=== PATIENT | female | born 1955 | race Caucasian/White ===

== ENCOUNTER 2018-09-02 07:07 | Outpatient (CLI) | payer OTHER ==
[2018-09-02 12:31] LABS: BASOPHILS % (AUTO) 1.2 %; EOSINOPHILS # (AUTO) 0.1 10^3/uL (0.0-0.7); EOSINOPHILS % (AUTO) 1.4 %; HGB - HEMOGLOBIN 14.3 g/dL (12.0-16.0); LYMPHOCYTES # (AUTO) 1.1 10^3/uL (1.5-3.5); LYMPHOCYTES % (AUTO) 31.7 %; MEAN CORPUSCULAR HEMOGLOBIN 29.4 pg (27.0-31.0); MEAN CORPUSCULAR HGB CONC 33.5 g/dL (32.0-36.0); MEAN CORPUSCULAR VOLUME 87.9 fL (81.0-99.0); MONOCYTES # (AUTO) 0.3 10^3/uL (0.0-1.0); MONOCYTES % (AUTO) 9.3 %; NEUTROPHILS % (AUTO) 56.4 %; PLT - PLATELET COUNT 273 10^3/uL (130-450); RED BLOOD COUNT 4.87 10^6/uL (4.20-5.40); RED CELL DISTRIBUTION WIDTH 13.2 % (12.0-15.0); WHITE BLOOD COUNT 3.5 x10^3/uL (4.8-10.8)
[2018-09-02 12:46] LABS: ALBUMIN 4.1 g/dL (3.2-5.5); ALBUMIN/GLOBULIN RATIO 1.2 (1.0-2.2); ALKALINE PHOSPHATASE 73 IU/L (42-121); ALT ALANINE AMINOTRANSFERASE 25 IU/L (10-60); AST ASPARTATE AMINOTRANSFERASE 29 IU/L (10-42); BILIRUBIN,TOTAL 1.1 mg/dL (0.2-1.0); BUN - BLOOD UREA NITROGEN 10 mg/dL (6-20); CALCIUM 9.4 mg/dL (8.5-10.3); CARBON DIOXIDE - CO2 29 mmol/L (21-32); CHLORIDE 98 mmol/L (101-111); CHOL/HDL RATIO 2.6 (<4.4); CHOLESTEROL 200 mg/dL; CREATININE 0.7 mg/dL (0.4-1.0); GFR - MDRD 84 (>89); GLUCOSE 94 mg/dL (70-100); HDL CHOLESTEROL 77 mg/dL; LDL CHOLESTEROL,CALCULATED 113 mg/dL; LDL/HDL RATIO 1.5 (<4.4); SODIUM 136 mmol/L (135-145); TOTAL PROTEIN 7.6 g/dL (6.7-8.2); VLDL CHOLESTEROL 10 mg/dL
== END 2018-09-02 23:59 | disposition home or self-care (01) ==
LOC: LAB.WCP 07:07
PROVIDERS: ATTEND Physician Assistant Medical
DX: Z00.00 Encounter for general adult medical examination without abnormal findings (principal)
CPT/HCPCS: 36415; 80053; 80061; 83721; 84443; 85025

== ENCOUNTER 2018-09-17 11:23 | Outpatient (CLI) | payer OTHER ==
--- NOTE | 2018-09-18 11:26 | Mammography Report ---
Reason: SCREENING MAMMO Procedure Date: 09/17/2018 Accession Number: [id number] / [id number] Procedure: MGN - Screening Mammo Dig Bilat CPT Code: FULL RESULT: EXAM: Screening Mammo Dig Bilat DATE: 09/17/2018 11:44 AM CLINICAL HISTORY: Routine screening. No reported personal or family history of breast cancer. TECHNIQUE: Bilateral CC and MLO views were obtained. COMPARISON: 02/19/2015 through 08/05/2010 FINDINGS: The breasts demonstrate scattered fibroglandular densities bilaterally. Bilateral breasts: There are no suspicious masses, calcifications or areas of distortion. Stable appearance of 2 subcentimeter oval, circumscribed margin equal density masses in the upper outer left breast, middle depth. IMPRESSION: Benign findings RECOMMENDATION: Routine annual screening unless otherwise clinically indicated. BI-RADS CATEGORY 2: Benign findings STANDARD QUALIFYING STATEMENTS: 1. This examination was reviewed with the aid of Computer-Aided Detection (CAD). 2. A negative or benign imaging report should not preclude biopsy if clinically suspicious findings are present. 3. Dense breasts may obscure an underlying neoplasm. 4. This examination was reviewed without the aid of 3D breast imaging (tomosynthesis).
== END 2018-09-17 11:24 | disposition home or self-care (01) ==
LOC: DI.N 11:23
DX: Z12.31 Encounter for screening mammogram for malignant neoplasm of breast (principal)
CPT/HCPCS: 77067

== ENCOUNTER 2018-12-27 07:54 | Outpatient (CLI) | payer OTHER ==
--- NOTE | 2018-12-27 16:17 | XRAY Report ---
Reason: BACK PAIN,THORACIC REGION,LUMBAR Procedure Date: 12/27/2018 Accession Number: [id number] / [id number] Procedure: WCP - Thoracic Spine 2 View CPT Code: FULL RESULT: EXAM: THORACIC SPINE RADIOGRAPHY EXAM DATE: 12/27/2018 08:32 AM. CLINICAL HISTORY: Back pain, thoracic region, lumbar. COMPARISON: None. TECHNIQUE: 2 views. FINDINGS: Alignment: There is mild thoracic kyphosis. There is a mild dextroconvex scoliosis, 4 degrees, centered in the mid thoracic spine. Bones: The bones are qualitatively osteopenic; this limits evaluation for underlying fractures or masses. No dominant single level fracture is detected. Disks: Normal. Disk heights are maintained. Soft Tissues: Calcified aortic arch, mild. IMPRESSION: Kyphosis without dominant single level fracture. Mild scoliosis. RADIA
== END 2018-12-27 07:55 | disposition home or self-care (01) ==
LOC: DI.WCP 07:54
PROVIDERS: ATTEND Family Medicine
DX: M41.84 Other forms of scoliosis, thoracic region (principal)
CPT/HCPCS: 72070

== ENCOUNTER 2018-12-27 07:55 | Outpatient (CLI) | payer OTHER ==
--- NOTE | 2018-12-27 16:17 | XRAY Report ---
Reason: BACK PAIN,THORACIC REGION,LUMBAR Procedure Date: 12/27/2018 Accession Number: [id number] / [id number] Procedure: WCP - Lumbar Spine 2 View CPT Code: FULL RESULT: EXAM: LUMBOSACRAL SPINE RADIOGRAPHY EXAM DATE: 12/27/2018 08:35 AM. CLINICAL HISTORY: BACK PAIN,THORACIC REGION,LUMBAR. COMPARISONS: None. TECHNIQUE: 2 views. FINDINGS: Alignment: Normal. No spondylolisthesis or scoliosis. Bones: Five lok-dvo-coxfrvh lumbar vertebral bodies are present. No fractures or bone lesions. Disks: Normal. Disk heights are maintained. Facets: There is moderate lower lumbar spine predominant facet arthropathy most pronounced at L5. Sacroiliac Joints: Unremarkable. Soft Tissues: Normal. The visualized bowel gas pattern is normal. IMPRESSION: Facet predominant lower lumbar spine degenerative changes. RADIA
== END 2018-12-27 07:56 | disposition home or self-care (01) ==
LOC: DI.WCP 07:55
PROVIDERS: ATTEND Family Medicine
DX: M41.84 Other forms of scoliosis, thoracic region (principal); M47.816 Spondylosis without myelopathy or radiculopathy, lumbar region; M81.0 Age-related osteoporosis without current pathological fracture
CPT/HCPCS: 36415; 72070; 72100; 82306

== ENCOUNTER 2018-12-27 08:23 | Outpatient (CLI) | payer OTHER | END 2018-12-27 08:24 | disposition home or self-care (01) | LOC: LAB.WCP 08:23 | PROVIDERS: ATTEND Family Medicine | DX: M81.0 Age-related osteoporosis without current pathological fracture (principal) | CPT/HCPCS: 36415; 82306 ==

== ENCOUNTER 2019-01-21 09:12 | Outpatient (CLI) | payer OTHER ==
--- NOTE | 2019-01-22 10:16 | DEXA Report ---
Reason: OSTEOPOROSIS NOS Procedure Date: 01/21/2019 Accession Number: [id number] / [id number] Procedure: DEX - Dexa Spine and/or Hip CPT Code: FULL RESULT: EXAM: Dexa Spine and/or Hip DATE: 01/21/2019 9:40 AM CLINICAL HISTORY: OSTEOPOROSIS NOS TECHNIQUE: Dual energy x-ray absorptiometry (DXA) was performed on a [employer] System. Regions measured are the AP Spine, femoral neck, and if needed forearm. COMPARISON: None. In accordance with the International Society for Clinical Densitometry (ISCD) guidelines, data from previous exams may be reanalyzed using current recommendations and techniques. This is done to allow a more accurate basis for comparison with the current study. FINDINGS: The data for the lumbar spine is as follows: BMD (g/cm/cm) T-SCORE Z-SCORE REGION L1 0.852 -2.3 -1.4 L2 0.927 -2.3 -1.4 L3 1.114 -0.7 0.2 L4 0.890 -2.6 -1.7 TOTAL 0.946 -1.9 -1.1 NOTE: All evaluable vertebrae are used for classification The data for the hip is as follows: BMD (g/cm/cm) T-SCORE Z-SCORE REGION Neck 0.721 -2.3 -1.3 TOTAL 0.711 -2.4 -1.7 NOTE: The femoral neck or total proximal femur, whichever is lowest, is used for classification. IMPRESSION: THE WHO CLASSIFICATION BASED ON THE INTERNATIONAL REFERENCE STANDARD IS OSTEOPENIA. THE FRACTURE RISK IS INCREASED. RECOMMENDATION: Patients with diagnosis of osteoporosis or osteopenia should have regular bone mineral density assessment. For those eligible for Medicare, routine testing is allowed once every 2 years. Testing frequency can be increased for patients who have rapidly progressing disease or for those who are receiving medical therapy to restore bone mass. COMMENT: World Health Organization (WHO) definitions for osteoporosis and osteopenia: NORMAL BMD: T-score at -1.0 or higher, fracture risk is low OSTEOPENIA BMD: T-score between -1.0 and -2.5, fracture risk is increased. OSTEOPOROSIS BMD: T-score at -2.5 or lower, fracture risk is high. National Osteoporosis Foundation recommends: 1. Obtain adequate dietary calcium (at least 1200 mg per day) and vitamin D (400-800 international units per day). 2. Participate, as appropriate, in regular weightbearing and muscle-strengthening exercise. 3. Avoid tobacco use and reduce alcohol and caffeine intake. 4. For more detailed information see the website at www.NOF.org.
== END 2019-01-21 09:13 | disposition home or self-care (01) ==
LOC: DI 09:12
PROVIDERS: ATTEND Family Medicine
DX: M85.89 Other specified disorders of bone density and structure, multiple sites (principal)
CPT/HCPCS: 77080

== ENCOUNTER 2019-02-06 03:45 | Outpatient (CLI) | payer OTHER | END 2019-02-06 04:00 | disposition home or self-care (01) | LOC: LAB.R 03:45 | PROVIDERS: ATTEND Physician Assistant Medical | DX: N39.0 Urinary tract infection, site not specified (principal) | CPT/HCPCS: 87086 ==

== ENCOUNTER 2019-02-17 08:00 | Outpatient (CLI) | payer MEDICARE ==
[2019-02-17 12:40] LABS: BILIRUBIN,URINE NEGATIVE (NEGATIVE); GLUCOSE, URINE (UA) NEGATIVE (NEGATIVE); KETONES,URINE (UA) NEGATIVE (NEGATIVE); LEUKOCYTE ESTERASE, URINE NEGATIVE (NEGATIVE); NITRITE,URINE NEGATIVE (NEGATIVE); OCCULT BLOOD,URINE TRACE-LYSE (NEGATIVE); PH,URINE 7.5 PH (5.0-7.5); PROTEIN,URINE TRACE mg/dL (NEGATIVE); UROBILINOGEN,URINE 0.2 (NORMAL) E.U./dL (NORMAL)
[2019-02-17 12:42] LABS: CLARITY,URINE CLEAR (CLEAR)
== END 2019-02-17 23:59 | disposition home or self-care (01) ==
LOC: LAB.WCP 08:00
PROVIDERS: ATTEND Physician Assistant Medical
DX: R31.9 Hematuria, unspecified (principal)
CPT/HCPCS: 81001; 81003; 87086

== ENCOUNTER 2019-02-17 08:00 | Outpatient (CLI) | payer MEDICARE ==
--- NOTE | 2019-02-17 16:05 | XRAY Report ---
Reason: BILATERAL HIP PAIN Procedure Date: 02/17/2019 Accession Number: [id number] / [id number] Procedure: WCP - Hip BILAT CPT Code: FULL RESULT: EXAM: BILATERAL HIP RADIOGRAPHY EXAM DATE: 02/17/2019 08:59 AM. CLINICAL HISTORY: BILATERAL HIP PAIN. COMPARISON: HIP 2 VIEW LT 03/28/2016 1:36 PM. TECHNIQUE: 2 views each. FINDINGS: Bones: Normal. No fractures or bone lesion. Right Hip: Mild hip joint space narrowing with mild marginal osteophytosis and no dislocation. Left Hip: Mild hip joint space narrowing with minimal marginal osteophytosis and no dislocation. Soft Tissues: Normal. No soft tissue swelling. IMPRESSION: Mild degenerative disease. RADIA
== END 2019-02-17 23:59 | disposition home or self-care (01) ==
LOC: DI.WCP 08:00 → EDSTATUS 13:05 → DI.WCP 23:59
PROVIDERS: ATTEND Physician Assistant Medical
DX: M16.0 Bilateral primary osteoarthritis of hip (principal)
CPT/HCPCS: 73521

== ENCOUNTER 2019-02-18 08:03 | Outpatient (CLI) | payer MEDICARE ==
--- NOTE | 2019-02-19 16:19 | Ultrasound Report ---
Reason: PELVIC PAIN Procedure Date: 02/18/2019 Accession Number: [id number] / [id number] Procedure: US - Pelvic w/Transvaginal CPT Code: FULL RESULT: EXAM: PELVIC ULTRASOUND EXAM DATE: 02/18/2019 08:13 AM. CLINICAL HISTORY: Pelvic pain for 7-8 weeks. COMPARISON: None. TECHNIQUE: Realtime transabdominal pelvic scan performed to identify the uterus and adnexa and as an overview of other pelvic structures, followed by transvaginal scan to provide greater detail of the uterus and adnexa, with static image documentation. FINDINGS: Uterus: 4.8 x 3.0 x 3.9 cm, volume 29.4 cc. Retroverted position. Normal overall size and echotexture. Masses: None. Endometrium: 5 mm. Normal. Cervix: Unremarkable. Right Ovary: 1.2 x 1.0 x 1.4 cm, volume 0.9 cc. Normal echotexture and blood flow. Left Ovary: 1.8 x 1.1 x 1.1 cm, volume 1.1 cc. Normal echotexture and blood flow. Free Fluid: None. Other: None. IMPRESSION: Normal pelvic ultrasound. RADIA
== END 2019-02-18 08:04 | disposition home or self-care (01) ==
LOC: DI 08:03
PROVIDERS: ATTEND Physician Assistant Medical
DX: R10.2 Pelvic and perineal pain (principal)
CPT/HCPCS: 76830; 76856

== ENCOUNTER 2019-03-24 08:00 | Outpatient (CLI) | payer MEDICARE ==
[2019-03-24 18:25] LABS: HGB - HEMOGLOBIN 13.1 g/dL (12.0-16.0); MEAN CORPUSCULAR HGB CONC 30.3 g/dL (32.0-36.0); MEAN CORPUSCULAR VOLUME 89.1 fL (81.0-99.0); MEAN PLATELET VOLUME 10.2 fL (7.9-10.8); RED BLOOD COUNT 4.86 10^6/uL (4.20-5.40); RED CELL DISTRIBUTION WIDTH 13.8 % (12.0-15.0)
[2019-03-24 18:43] LABS: URIC ACID 5.3 mg/dL (2.6-7.2)
[2019-03-24 18:58] LABS: RHEUMATOID FACTOR NEGATIVE (Negative)
[2019-03-28 09:07] LABS: ANA SCREEN NEGATIVE (NEGATIVE)
== END 2019-03-24 23:59 | disposition home or self-care (01) ==
LOC: LAB.WCP 08:00
PROVIDERS: ATTEND Physician Assistant Medical
DX: M25.50 Pain in unspecified joint (principal)
CPT/HCPCS: 36415; 84550; 85027; 85651; 86038; 86140; 86200; 86430

== ENCOUNTER 2020-03-09 07:00 | Outpatient (CLI) | payer MEDICARE, OTHER ==
[2020-03-09 19:00] LABS: BILIRUBIN,URINE NEGATIVE (NEGATIVE); GLUCOSE, URINE (UA) NEGATIVE (NEGATIVE); KETONES,URINE (UA) NEGATIVE (NEGATIVE); LEUKOCYTE ESTERASE, URINE NEGATIVE (NEGATIVE); NITRITE,URINE NEGATIVE (NEGATIVE); OCCULT BLOOD,URINE TRACE-INTA (NEGATIVE); PH,URINE 6.5 PH (5.0-7.5); PROTEIN,URINE NEGATIVE (NEGATIVE); UROBILINOGEN,URINE 0.2 (NORMAL) E.U./dL (NORMAL)
[2020-03-09 19:23] LABS: BACTERIA,URINE None Seen /HPF (None Seen); CLARITY,URINE CLEAR (CLEAR); RBC,URINE 0-5 /HPF (0-5); SQUAMOUS EPITHELIAL CELL,UR NONE SEEN (<= Few)
== END 2020-03-09 23:59 | disposition home or self-care (01) ==
LOC: LAB.R 07:00
PROVIDERS: ATTEND Physician Assistant Medical
DX: R31.9 Hematuria, unspecified (principal)
CPT/HCPCS: 81001; 87086

== ENCOUNTER 2021-11-24 13:40 | Emergency (ER) | payer MEDICARE, OTHER ==
--- NOTE | 2021-11-24 13:55 | ED Physician Documentation ---
PD HPI CHEST PAIN - Stated complaint Stated Complaint: DIZZY/LT ARM PX - Chief complaint Chief Complaint: Cardiac - History obtained from History obtained from: Patient - History of Present Illness Timing - onset: How many days ago (3) Timing - onset during: Light activity (just working at desk at work, with onset of left upper arm and shoulder tightness, some nausea, but no chest pain per se. Had episode of vertigo earlier today for few minutes.) Timing - duration: Minutes, Hours Timing - details: Abrupt onset, Now resolved, Intermittant Quality: Pressure, Tightness Location: Left shoulder/arm. No: Substernal Radiation: Neck. No: Back, Abdominal Associated symptoms: Nausea, Feeling faint / dizzy. No: Shortness of air, Palpitations Similar symptoms before: Has not had sx before (She does not do exertional activity. No regular exercise or walking. There are stairs at work and she has not had any unusual dyspnea or chest pain with those.) Recently seen: Not recently seen (She did have COVID by positive home test 3 weeks ago with largely sinus congestion and mild fatigue.) Review of Systems Constitutional: reports: Fatigue. denies: Fever, Chills Nose: reports: Rhinorrhea / runny nose (3 weeks ago fo several days), Congestion (3 weeks ago) Throat: denies: Sore throat Cardiac: reports: Pedal edema (mild around lower legs by end of day, improved with elevation.). denies: Chest pain / pressure, Palpitations Respiratory: denies: Dyspnea, Cough GI: denies: Nausea, Vomiting, Diarrhea Skin: denies: Rash, Lesions Neurologic: denies: Focal weakness, Numbness, Near syncope, Headache PD PAST MEDICAL HISTORY - Past Medical History Cardiovascular: None Respiratory: None Neuro: None Endocrine/Autoimmune: None GI: GERD - Past Surgical History Past Surgical History: No HEENT: Tonsil/Adenoidectomy - Present Medications Home Medications: Ambulatory Orders Medication Instructions Recorded Confirmed No Known Home Medications 08/14/14 08/14/14 - Allergies Allergies/Adverse Reactions: Allergies Allergy/AdvReac Type Severity Reaction Status Date / Time No Known Drug Allergies Allergy Verified 11/24/21 13:49 - Social History Does the pt smoke?: Yes Smoking Status: Former smoker (Quit smoking three years ago.) Does the pt drink ETOH?: Yes Does the pt have substance abuse?: Yes - Immunizations Immunizations are current?: No - POLST Patient has POLST: No PD ED PE NORMAL - Vitals Vital signs reviewed: Yes - General General: Alert and oriented X 3, No acute distress, Well developed/nourished - HEENT HEENT: Pharynx benign - Neck Neck: Supple, no meningeal sign, No adenopathy, No bruit - Cardiac Cardiac: RRR, No murmur - Respiratory Respiratory: Clear bilaterally - Abdomen Abdomen: Soft, Non tender - Derm Derm: Normal color, Warm and dry - Extremities Extremities: No deformity, No tenderness to palpate, No calf tenderness / cord, Other (1+ edema in both lower legs/ankles. ) - Neuro Neuro: Alert and oriented X 3, No motor deficit, Normal speech Results - Vitals Vitals: Vital Signs - 24 hr 11/24/21 11/24/21 13:43 15:27 Temperature 36.5 C Heart Rate 79 73 Respiratory 14 15 Rate Blood Pressure 151/99 H 160/104 H O2 Saturation 98 95 Oxygen O2 Source Room air - EKG (time done) 13:56 Rate: Rate (enter#) (70) Rhythm: NSR [place]: Normal Intervals: Normal [place] QRS: Normal Ischemia: Normal ST segments. No: ST elevation c/w ischemia, ST depression - Labs Labs: Laboratory Tests 11/24/21 11/24/21 11/24/21 14:15 14:15 14:15 WBC 5.6 RBC 4.68 Hgb 13.4 Hct 41.4 MCV 88.5 MCH 28.6 MCHC 32.4 RDW 13.4 Plt Count 283 MPV 10.1 Neut # (Auto) 3.4 Lymph # (Auto) 1.6 Coal # (Auto) 0.5 Eos # (Auto) 0.1 Baso # (Auto) 0.1 Absolute Nucleated RBC 0.00 Nucleated RBC % 0.0 Sodium 139 Potassium 4.6 Chloride 103 Carbon Dioxide 27 Anion Gap 9.0 BUN 16 Creatinine 0.8 Estimated GFR (MDRD) 71 L Glucose 107 H Calcium 9.6 Total Bilirubin 0.7 AST 25 ALT 26 Alkaline Phosphatase 64 Troponin I High Sens 6.2 C-Reactive Protein 1.3 H B-Natriuretic Peptide Total Protein 7.4 Albumin 4.0 Globulin 3.4 Albumin/Globulin Ratio 1.2 Lipase 43 11/24/21 14:15 WBC RBC Hgb Hct MCV MCH MCHC RDW Plt Count MPV Neut # (Auto) Lymph # (Auto) Coal # (Auto) Eos # (Auto) Baso # (Auto) Absolute Nucleated RBC Nucleated RBC % Sodium Potassium Chloride Carbon Dioxide Anion Gap BUN Creatinine Estimated GFR (MDRD) Glucose Calcium Total Bilirubin AST ALT Alkaline Phosphatase Troponin I High Sens C-Reactive Protein B-Natriuretic Peptide 39 Total Protein Albumin Globulin Albumin/Globulin Ratio Lipase - Rads (name of study) chest xray Radiology: Prelim report reviewed (no acute process), See rad report PD MEDICAL DECISION MAKING - ED course Complexity details: reviewed results (Chest x-ray, EKG, blood tests are normal. No signs of cardiopulmonary cause. Not exertional pattern of the arm discomfort more inclined to call musculoskeletal at this time.), re-evaluated patient, considered differential (Patient's concern is for heart related symptoms with shoulder and arm tightness and numbness along with nausea. No chest pain per se. She had COVID 3 weeks ago so I would also add myocarditis as a concern. Can get appropriate labs EKG and chest x-ray.), d/w patient Departure - Departure Disposition: Home, Self Care Clinical Impression: Ruled out for myocardial infarction Left shoulder pain Qualifiers: Chronicity: acute Qualified Code(s): M25.512 - Pain in left shoulder Condition: Stable Record reviewed to determine appropriate education?: Yes Instructions: ED Chest Pain Atypical Unkn Cause Follow-Up: Liya Mckenzie PA-C [Primary Care Provider] - Comments: Its unclear the cause of your shoulder and arm symptoms. Consider possibilities of of muscular strain or shoulder nerve impingement or rotator cuff inflammation. It does not have an exertional pattern and your EKG, vital signs, chest x-ray and blood tests are normal without signs of acute cardiopulmonary causes. See if any other symptoms develop. Otherwise consider some Tylenol or ibuprofen. Be sure to assess your desk and chair positioning at work to ensure proper shoulder mechanics. If you have other symptoms develop or you notice an exertional pattern to any symptoms, follow-up with your primary care for potential further testing. Return to the ER if worse. Discharge Date/Time: 11/24/21 15:38
[2021-11-24] MEDS ORDERED: MECLIZINE 12.5 MG TABLET PO STA (14:11)
[2021-11-24 14:22] LABS: BASOPHILS # (AUTO) 0.1 10^3/uL (0.0-0.1); BASOPHILS % (AUTO) 0.9 %; EOSINOPHILS # (AUTO) 0.1 10^3/uL (0.0-0.7); EOSINOPHILS % (AUTO) 0.9 %; HCT - HEMATOCRIT 41.4 % (37.0-47.0); HGB - HEMOGLOBIN 13.4 g/dL (12.0-16.0); LYMPHOCYTES # (AUTO) 1.6 10^3/uL (1.5-3.5); LYMPHOCYTES % (AUTO) 28.9 %; MEAN CORPUSCULAR HEMOGLOBIN 28.6 pg (27.0-31.0); MEAN CORPUSCULAR HGB CONC 32.4 g/dL (32.0-36.0); MEAN CORPUSCULAR VOLUME 88.5 fL (81.0-99.0); MEAN PLATELET VOLUME 10.1 fL (7.9-10.8); MONOCYTES # (AUTO) 0.5 10^3/uL (0.0-1.0); MONOCYTES % (AUTO) 8.1 %; NEUTROPHILS # (AUTO) 3.4 10^3/uL (1.5-6.6); PLT - PLATELET COUNT 283 10^3/uL (130-450); RED BLOOD COUNT 4.68 10^6/uL (4.20-5.40); RED CELL DISTRIBUTION WIDTH 13.4 % (12.0-15.0); WHITE BLOOD COUNT 5.6 x10^3/uL (4.8-10.8)
--- NOTE | 2021-11-24 14:47 | XRAY Report ---
PROCEDURE: Chest 1 View X-Ray INDICATIONS: Chest pain TECHNIQUE: One view of the chest was acquired. COMPARISON: 08/24/2014 FINDINGS: Surgical changes and devices: None. Lungs and pleura: No pleural effusions or pneumothorax. Lungs are clear. Mediastinum: Mediastinal contours appear normal. Heart size is normal. Bones and chest wall: No suspicious bony lesions. Overlying soft tissues appear unremarkable. IMPRESSION: No acute cardiopulmonary disease. Reviewed by: Shobha Andino MD on 11/24/2021 2:46 PM PDT Approved by: Shobha Andino MD on 11/24/2021 2:46 PM PDT Station ID: [id number]
[2021-11-24 14:57] LABS: ALBUMIN/GLOBULIN RATIO 1.2 (1.0-2.2); BILIRUBIN,TOTAL 0.7 mg/dL (0.2-1.0); CALCIUM 9.6 mg/dL (8.5-10.3); CREATININE 0.8 mg/dL (0.4-1.0); CRP - C-REACTIVE PROTEIN 1.3 mg/dL (0-1.0); POTASSIUM 4.6 mmol/L (3.5-5.0); TOTAL PROTEIN 7.4 g/dL (6.7-8.2)
[2021-11-24 15:29] VITALS: BP 160/104
== END 2021-11-24 15:38 | disposition home or self-care (01) ==
LOC: ED 13:40
DX: M25.512 Pain in left shoulder (principal); Z87.891 Personal history of nicotine dependence
CPT/HCPCS: 36415; 71045; 80053; 83690; 83880; 84484; 85025; 86140; 93005; 99284; A9270

== ENCOUNTER 2021-12-20 14:46 | Outpatient (CLI) | payer MEDICARE, OTHER ==
--- NOTE | 2021-12-20 17:19 | XRAY Report ---
PROCEDURE: Knee 3 View BILAT INDICATIONS: BILATERAL KNEE PX TECHNIQUE: 3 views of the bilateral knee(s) were acquired. COMPARISON: None. FINDINGS: Bones: No fractures or dislocations. No suspicious bony lesions. There is bilateral moderate media l compartment narrowing slightly more prominent on the left. Moderate lateral right and mild to moder ate lateral left compartment narrowing is present. There is moderate bilateral patellofemoral compart ment narrowing. Chondrocalcinosis is present. Minimal periarticular osteophytes. No erosions. Soft tissues: No joint effusion. No suspicious soft tissue calcifications. IMPRESSION: Tricompartmental arthritic narrowing bilaterally as above. Reviewed by: Rola Shell MD on 12/20/2021 5:17 PM PDT Approved by: Rola Shell MD on 12/20/2021 5:17 PM PDT Station ID: [id number]
== END 2021-12-20 14:47 | disposition home or self-care (01) ==
LOC: DI.N 14:46
PROVIDERS: ATTEND Physician Assistant Medical
DX: M17.0 Bilateral primary osteoarthritis of knee (principal)

== ENCOUNTER 2022-06-16 06:07 | Outpatient (CLI) | payer OTHER ==
[2022-06-16 06:19] LABS: BASOPHILS # (AUTO) 0.1 10^3/uL (0.0-0.1); BASOPHILS % (AUTO) 1.1 %; EOSINOPHILS # (AUTO) 0.1 10^3/uL (0.0-0.7); EOSINOPHILS % (AUTO) 1.5 %; HCT - HEMATOCRIT 44.6 % (37.0-47.0); HGB - HEMOGLOBIN 14.1 g/dL (12.0-16.0); LYMPHOCYTES # (AUTO) 1.4 10^3/uL (1.5-3.5); LYMPHOCYTES % (AUTO) 26.1 %; MEAN CORPUSCULAR HEMOGLOBIN 27.8 pg (27.0-31.0); MEAN CORPUSCULAR HGB CONC 31.6 g/dL (32.0-36.0); MEAN CORPUSCULAR VOLUME 87.8 fL (81.0-99.0); MEAN PLATELET VOLUME 9.8 fL (7.9-10.8); MONOCYTES # (AUTO) 0.5 10^3/uL (0.0-1.0); MONOCYTES % (AUTO) 8.8 %; NEUTROPHILS # (AUTO) 3.3 10^3/uL (1.5-6.6); NEUTROPHILS % (AUTO) 62.3 %; PLT - PLATELET COUNT 280 10^3/uL (130-450); RED BLOOD COUNT 5.08 10^6/uL (4.20-5.40); RED CELL DISTRIBUTION WIDTH 13.2 % (12.0-15.0); WHITE BLOOD COUNT 5.2 x10^3/uL (4.8-10.8)
[2022-06-16 06:43] LABS: ALBUMIN 3.9 g/dL (3.2-5.5); ALBUMIN/GLOBULIN RATIO 1.1 (1.0-2.2); ALKALINE PHOSPHATASE 70 IU/L (42-121); ALT ALANINE AMINOTRANSFERASE 20 IU/L (10-60); AST ASPARTATE AMINOTRANSFERASE 24 IU/L (10-42); BILIRUBIN,TOTAL 0.6 mg/dL (0.2-1.0); BUN - BLOOD UREA NITROGEN 16 mg/dL (6-20); CALCIUM 9.2 mg/dL (8.5-10.3); CARBON DIOXIDE - CO2 25 mmol/L (21-32); CHLORIDE 103 mmol/L (101-111); CHOL/HDL RATIO 2.9 (<4.4); CHOLESTEROL 218 mg/dL; CREATININE 0.8 mg/dL (0.4-1.0); GFR - MDRD 71 (>89); GLUCOSE 107 mg/dL (70-100); HDL CHOLESTEROL 75 mg/dL; LDL CHOLESTEROL,CALCULATED 134 mg/dL; LDL/HDL RATIO 1.8 (<4.4); POTASSIUM 4.1 mmol/L (3.5-5.0); SODIUM 138 mmol/L (135-145); TOTAL PROTEIN 7.5 g/dL (6.7-8.2); TRIGLYCERIDES 44 mg/dL; VLDL CHOLESTEROL 9 mg/dL
[2022-06-16 06:49] LABS: THYROID STIMULATING HORMONE 2.76 uIU/mL (0.34-5.60)
== END 2022-06-16 06:08 | disposition home or self-care (01) ==
LOC: LAB 06:07
PROVIDERS: ATTEND Physician Assistant Medical
DX: Z79.899 Other long term (current) drug therapy (principal); Z13.220 Encounter for screening for lipoid disorders
CPT/HCPCS: 36415; 80053; 80061; 83721; 84443; 85025

== ENCOUNTER 2023-08-21 07:02 | Outpatient (CLI) | payer OTHER ==
[2023-08-21 14:37] LABS: BASOPHILS # (AUTO) 0.1 10^3/uL (0.0-0.1); BASOPHILS % (AUTO) 1.1 %; EOSINOPHILS # (AUTO) 0.1 10^3/uL (0.0-0.7); EOSINOPHILS % (AUTO) 1.3 %; HCT - HEMATOCRIT 47.4 % (37.0-47.0); HGB - HEMOGLOBIN 14.1 g/dL (12.0-16.0); LYMPHOCYTES # (AUTO) 1.4 10^3/uL (1.5-3.5); LYMPHOCYTES % (AUTO) 22.5 %; MEAN CORPUSCULAR HEMOGLOBIN 28.4 pg (27.0-31.0); MEAN CORPUSCULAR HGB CONC 29.7 g/dL (32.0-36.0); MEAN CORPUSCULAR VOLUME 95.6 fL (81.0-99.0); MONOCYTES # (AUTO) 0.5 10^3/uL (0.0-1.0); MONOCYTES % (AUTO) 7.9 %; NEUTROPHILS # (AUTO) 4.2 10^3/uL (1.5-6.6); NEUTROPHILS % (AUTO) 66.9 %; PLT - PLATELET COUNT 255 10^3/uL (130-450); RED BLOOD COUNT 4.96 10^6/uL (4.20-5.40); RED CELL DISTRIBUTION WIDTH 13.7 % (12.0-15.0); WHITE BLOOD COUNT 6.3 x10^3/uL (4.8-10.8)
[2023-08-21 15:02] LABS: ALBUMIN 4.2 g/dL (3.2-5.5); ALBUMIN/GLOBULIN RATIO 1.6 (1.0-2.2); ALKALINE PHOSPHATASE 60 IU/L (42-121); ALT ALANINE AMINOTRANSFERASE 13 IU/L (10-60); AST ASPARTATE AMINOTRANSFERASE 17 IU/L (10-42); BILIRUBIN,TOTAL 0.5 mg/dL (0.2-1.0); BUN - BLOOD UREA NITROGEN 14 mg/dL (6-20); CALCIUM 9.2 mg/dL (8.5-10.3); CARBON DIOXIDE - CO2 30 mmol/L (21-32); CHLORIDE 106 mmol/L (101-111); CHOL/HDL RATIO 2.7 (<4.4); CHOLESTEROL 193 mg/dL; CREATININE 0.7 mg/dL (0.6-1.3); GFR - MDRD 83 (>89); GLUCOSE 88 mg/dL (74-104); HDL CHOLESTEROL 72 mg/dL; LDL CHOLESTEROL,CALCULATED 101 mg/dL; LDL/HDL RATIO 1.4 (<4.4); SODIUM 140 mmol/L (135-145); TOTAL PROTEIN 6.9 g/dL (6.4-8.9); TRIGLYCERIDES 99 mg/dL (48-352); VLDL CHOLESTEROL 20 mg/dL
== END 2023-08-21 07:03 | disposition home or self-care (01) ==
LOC: LAB.S 07:02
PROVIDERS: ATTEND Physician Assistant Medical
DX: K21.9 Gastro-esophageal reflux disease without esophagitis (principal); E78.5 Hyperlipidemia, unspecified
CPT/HCPCS: 36415; 80053; 80061; 83721; 85025